=== PATIENT | male | born 1995 | race African-American/Black ===

== ENCOUNTER 2021-05-04 13:27 | Emergency (ER) | payer MEDICARE, MEDICAID ==
[~2021-05-04] VITALS: Ht 170.2 cm; Wt 100.0 kg
[2021-05-04 15:41] VITALS: BP 131/69
== END 2021-05-04 15:43 | disposition home or self-care (01) ==
LOC: ER 13:27
DX: S09.8XXA Other specified injuries of head, initial encounter (principal); V49.59XA Passenger injured in collision with other motor vehicles in traffic accident, initial encounter; F84.0 Autistic disorder; Y93.89 Activity, other specified; Y92.488 Other paved roadways as the place of occurrence of the external cause; Z98.2 Presence of cerebrospinal fluid drainage device
CPT/HCPCS: 99284